=== PATIENT | female | born 1965 | race Caucasian/White ===

== ENCOUNTER 2020-12-01 13:45 | Inpatient (IN) | payer OTHER ==
[2020-12-01] MEDS ORDERED: IBUPROFEN 400 MG TABLET (FP) PO PRN (15:16)
[2020-12-01] MEDS ORDERED: guaiFENesin 200 MG/10 ML 10 ML UNIT-DOSE CUPS PO PRN (15:16)
[2020-12-01] MEDS ORDERED: P-EPHED 60MG/TRIPROLIDI 2.5MG TABLET PO PRN (15:16)
[2020-12-01] MEDS ORDERED: MAGNESIUM CITRATE 300 ML BOTTLE PO PRN (15:16)
[2020-12-01] MEDS ORDERED: LOPERAMIDE HCL 2 MG CAPSULE PO PRN (15:16)
[2020-12-01] MEDS ORDERED: MAG HYDROX/AL HYDROX/SIMETH 30 ML UNIT-DOSE CUP PO PRN (15:16)
[2020-12-01] MEDS ORDERED: MAGNESIUM HYDROX 2400MG/30ML ORAL SUSPENSION 30 ML CUP PO PRN (15:16)
[2020-12-01 15:20] VITALS: BMI 25.9
[2020-12-01] MEDS ORDERED: TUBERCULIN PPD 5 TU/0.1ML VIAL ID ONE (17:40)
[2020-12-01] MEDS: PRENATAL VITAMINS W/ FOLIC ACID TABLET (FP) PO SCH (17:53)
[2020-12-01] MEDS: hydrOXYzine PAMOATE 25 MG CAPSULE (FP) PO SCH ×2 (17:53→21:27)
[2020-12-01] MEDS: THIAMINE HCL 100 MG TABLET (FP) PO SCH (21:27)
[2020-12-01] MEDS ORDERED: MELATONIN 5 MG TABLETS PO SCH (22:00)
[2020-12-02] MEDS: hydrOXYzine PAMOATE 25 MG CAPSULE (FP) PO SCH ×5 (05:58→21:11)
[2020-12-02] MEDS ORDERED: NICOTINE 10 MG CARTRIDGE (INHALER) IH SCH (10:00)
[2020-12-02 10:13] LABS: HEMATOCRIT 38.8 % (32.4-45.2); HEMOGLOBIN 13.3 GM/dL (10.7-15.3); MCH 35.5 pg (25.7-33.7); MCHC 34.3 g/dl (32.0-36.0); MEAN CELL VOLUME 103.5 fl (80-96); MEAN PLT VOLUME 8.7 fl (7.5-11.1); PLATELET COUNT 274 10^3/uL (134-434); RBC 3.74 M/mm3 (3.60-5.2); RDW 13.6 % (11.6-15.6); WHITE BLOOD COUNT 7.3 K/mm3 (4.0-10.0)
[2020-12-02] MEDS: PRENATAL VITAMINS W/ FOLIC ACID TABLET (FP) PO SCH (10:15)
[2020-12-02 10:34] LABS: CALCIUM 9.4 mg/dL (8.5-10.1)
[2020-12-02 10:35] LABS: ALBUMIN 3.6 g/dl (3.4-5.0); BLOOD UREA NITROGEN 11.2 mg/dL (7-18)
[2020-12-02 10:38] LABS: CREATININE 0.6 mg/dL (0.55-1.3)
[2020-12-02 10:40] LABS: TOT PROT 7.3 g/dl (6.4-8.2)
[2020-12-02 10:43] LABS: BILIRUBIN,TOTAL 0.7 mg/dL (0.2-1)
[2020-12-02 13:23] LABS: SYPHILIS W/ RPR CONF NON-REACTIVE (NONREACTIVE)
[2020-12-02] MEDS: NICOTINE 10 MG CARTRIDGE (INHALER) IH PRN (17:20)
[2020-12-02] MEDS: THIAMINE HCL 100 MG TABLET (FP) PO SCH (21:11)
[2020-12-02] MEDS ORDERED: SUVOREXANT 10 MG TABLET PO PRN (22:00)
[2020-12-03] MEDS: hydrOXYzine PAMOATE 25 MG CAPSULE (FP) PO SCH ×5 (06:16→21:49)
[2020-12-03] MEDS: PRENATAL VITAMINS W/ FOLIC ACID TABLET (FP) PO SCH (10:30)
[2020-12-03] MEDS: THIAMINE HCL 100 MG TABLET (FP) PO SCH (21:49)
[2020-12-03] MEDS: SUVOREXANT 15 MG TABLET PO PRN (21:52)
[2020-12-04] MEDS: hydrOXYzine PAMOATE 25 MG CAPSULE (FP) PO SCH ×5 (06:17→21:25)
[2020-12-04] MEDS: PRENATAL VITAMINS W/ FOLIC ACID TABLET (FP) PO SCH (10:24)
[2020-12-04 13:00] LABS: EPI CELLS 13 /uL (0-25.1); HYALINE CASTS 0 /uL (0-3.1); URINE APPEARANCE CLEAR; URINE BACTERIA 9 /uL (0-1359); URINE BILIRUBIN NEGATIVE (NEGATIVE); URINE COLOR YELLOW; URINE GLUCOSE (UA) NEGATIVE (NEGATIVE); URINE KETONE NEGATIVE (NEGATIVE); URINE LEUK ESTERASE 2+ (NEGATIVE); URINE NITRITE NEGATIVE (NEGATIVE); URINE PROTEIN NEGATIVE (NEGATIVE); URINE RBC 1 /uL (0-23.9); URINE UROBILINOGEN 0.2 mg/dL (0.2-1.0); URINE WBC 20 /uL (0-25.8)
[2020-12-04] MEDS: THIAMINE HCL 100 MG TABLET (FP) PO SCH (21:25)
[2020-12-04] MEDS: SUVOREXANT 15 MG TABLET PO PRN (21:26)
[2020-12-05] MEDS: ACETAMINOPHEN 325 MG TABLET (FP) PO PRN (06:12)
[2020-12-05] MEDS: hydrOXYzine PAMOATE 25 MG CAPSULE (FP) PO SCH ×5 (06:12→21:33)
[2020-12-05] MEDS: PRENATAL VITAMINS W/ FOLIC ACID TABLET (FP) PO SCH (10:14)
[2020-12-05] MEDS: NICOTINE 10 MG CARTRIDGE (INHALER) IH PRN ×3 (10:15→21:33)
[2020-12-05] MEDS: SUVOREXANT 15 MG TABLET PO PRN (21:33)
[2020-12-05] MEDS: THIAMINE HCL 100 MG TABLET (FP) PO SCH (21:35)
[2020-12-06] MEDS: NICOTINE 10 MG CARTRIDGE (INHALER) IH PRN ×3 (06:12→22:26)
[2020-12-06] MEDS: hydrOXYzine PAMOATE 25 MG CAPSULE (FP) PO SCH ×5 (06:12→21:53)
[2020-12-06] MEDS: PRENATAL VITAMINS W/ FOLIC ACID TABLET (FP) PO SCH (10:05)
[2020-12-06] MEDS: THIAMINE HCL 100 MG TABLET (FP) PO SCH (21:53)
[2020-12-06] MEDS: SUVOREXANT 15 MG TABLET PO PRN (21:54)
[2020-12-07] MEDS: hydrOXYzine PAMOATE 25 MG CAPSULE (FP) PO SCH ×5 (06:13→21:51)
[2020-12-07] MEDS: ACETAMINOPHEN 325 MG TABLET (FP) PO PRN ×3 (06:31→21:54)
[2020-12-07] MEDS: PRENATAL VITAMINS W/ FOLIC ACID TABLET (FP) PO SCH (10:24)
[2020-12-07] MEDS: NICOTINE 10 MG CARTRIDGE (INHALER) IH PRN (10:25)
[2020-12-07] MEDS: THIAMINE HCL 100 MG TABLET (FP) PO SCH (21:52)
[2020-12-07] MEDS: SUVOREXANT 15 MG TABLET PO PRN (21:53)
[2020-12-08] MEDS: ACETAMINOPHEN 325 MG TABLET (FP) PO PRN (06:16)
[2020-12-08] MEDS: hydrOXYzine PAMOATE 25 MG CAPSULE (FP) PO SCH ×3 (06:16→13:40)
[2020-12-08] MEDS: PRENATAL VITAMINS W/ FOLIC ACID TABLET (FP) PO SCH (10:35)
[2020-12-08] MEDS: NICOTINE 10 MG CARTRIDGE (INHALER) IH PRN ×2 (10:36→21:37)
[2020-12-08] MEDS: BACLOFEN 10 MG TABLET (FP) PO SCH ×2 (13:40→21:34)
[2020-12-08] MEDS: THIAMINE HCL 100 MG TABLET (FP) PO SCH (21:34)
[2020-12-08] MEDS: diphenhydrAMINE HCL 50 MG CAPSULE PO PRN (21:36)
[2020-12-08] MEDS: SUVOREXANT 15 MG TABLET PO PRN (21:37)
[2020-12-09] MEDS: hydrOXYzine PAMOATE 25 MG CAPSULE (FP) PO PRN ×2 (06:18→10:45)
[2020-12-09] MEDS: BACLOFEN 10 MG TABLET (FP) PO SCH (06:18)
[2020-12-09] MEDS: NICOTINE 10 MG CARTRIDGE (INHALER) IH PRN (08:33)
[2020-12-09] MEDS: PRENATAL VITAMINS W/ FOLIC ACID TABLET (FP) PO SCH (10:42)
[2020-12-09] MEDS: LIDOCAINE 5% TOPICAL PATCH TP SCH (11:04)
[2020-12-09] MEDS: BACLOFEN 10 MG TABLET (FP) PO PRN ×2 (14:07→21:31)
[2020-12-09] MEDS: THIAMINE HCL 100 MG TABLET (FP) PO SCH (21:29)
[2020-12-09] MEDS: LIDOCAINE PATCH REMOVAL MC SCH (21:29)
[2020-12-09] MEDS: ACETAMINOPHEN 325 MG TABLET (FP) PO PRN (22:23)
[2020-12-10] MEDS: NICOTINE 10 MG CARTRIDGE (INHALER) IH PRN ×2 (06:20→16:34)
[2020-12-10] MEDS: BACLOFEN 10 MG TABLET (FP) PO PRN ×2 (06:20→21:43)
[2020-12-10] MEDS: ACETAMINOPHEN 325 MG TABLET (FP) PO PRN (07:38)
[2020-12-10] MEDS: PRENATAL VITAMINS W/ FOLIC ACID TABLET (FP) PO SCH (09:50)
[2020-12-10] MEDS: LIDOCAINE 5% TOPICAL PATCH TP SCH (09:50)
[2020-12-10] MEDS: hydrOXYzine PAMOATE 25 MG CAPSULE (FP) PO PRN ×2 (09:56→16:34)
[2020-12-10] MEDS ORDERED: diphenhydrAMINE HCL 25 MG CAPSULE (FP) PO ONE (19:26)
[2020-12-10] MEDS: THIAMINE HCL 100 MG TABLET (FP) PO SCH (21:43)
[2020-12-10] MEDS: diphenhydrAMINE HCL 50 MG CAPSULE PO PRN (21:44)
[2020-12-10] MEDS: LIDOCAINE PATCH REMOVAL MC SCH (21:44)
[2020-12-11] MEDS: BACLOFEN 10 MG TABLET (FP) PO PRN ×2 (06:17→21:20)
[2020-12-11] MEDS ORDERED: PT OWN MED DRAWER 7, Y5N ONE (08:56)
[2020-12-11] MEDS: LIDOCAINE 5% TOPICAL PATCH TP SCH (10:39)
[2020-12-11] MEDS: PRENATAL VITAMINS W/ FOLIC ACID TABLET (FP) PO SCH (10:39)
[2020-12-11] MEDS: NICOTINE 10 MG CARTRIDGE (INHALER) IH PRN (10:40)
[2020-12-11] MEDS: hydrOXYzine PAMOATE 25 MG CAPSULE (FP) PO PRN (10:40)
[2020-12-11] MEDS: diphenhydrAMINE HCL 50 MG CAPSULE PO PRN (21:20)
[2020-12-11] MEDS: THIAMINE HCL 100 MG TABLET (FP) PO SCH (21:20)
[2020-12-11] MEDS: LIDOCAINE PATCH REMOVAL MC SCH (21:21)
[2020-12-11] MEDS: ACETAMINOPHEN 325 MG TABLET (FP) PO PRN (21:22)
[2020-12-12] MEDS: NICOTINE 10 MG CARTRIDGE (INHALER) IH PRN (07:31)
[2020-12-12] MEDS: PRENATAL VITAMINS W/ FOLIC ACID TABLET (FP) PO SCH (10:12)
[2020-12-12] MEDS: LIDOCAINE 5% TOPICAL PATCH TP SCH (10:12)
[2020-12-12] MEDS: hydrOXYzine PAMOATE 25 MG CAPSULE (FP) PO PRN ×2 (10:13→21:45)
[2020-12-12] MEDS: BACLOFEN 10 MG TABLET (FP) PO PRN ×2 (15:09→21:43)
[2020-12-12] MEDS ORDERED: diphenhydrAMINE HCL 25 MG CAPSULE (FP) PO ONE (21:42)
[2020-12-12] MEDS: diphenhydrAMINE HCL 50 MG CAPSULE PO PRN (21:43)
[2020-12-12] MEDS: THIAMINE HCL 100 MG TABLET (FP) PO SCH (21:43)
[2020-12-12] MEDS: LIDOCAINE PATCH REMOVAL MC SCH (22:49)
[2020-12-13] MEDS ORDERED: PT OWN MED DRAWER 7, Y5N ONE (03:14)
[2020-12-13] MEDS: PRENATAL VITAMINS W/ FOLIC ACID TABLET (FP) PO SCH (10:06)
[2020-12-13] MEDS: NICOTINE 10 MG CARTRIDGE (INHALER) IH PRN (10:07)
[2020-12-13] MEDS: LIDOCAINE 5% TOPICAL PATCH TP SCH (10:07)
[2020-12-13] MEDS: LIDOCAINE PATCH REMOVAL MC SCH (21:49)
[2020-12-13] MEDS: diphenhydrAMINE HCL 50 MG CAPSULE PO PRN (21:49)
[2020-12-13] MEDS: THIAMINE HCL 100 MG TABLET (FP) PO SCH (21:49)
[2020-12-14] MEDS: NICOTINE 10 MG CARTRIDGE (INHALER) IH PRN (06:45)
[2020-12-14] MEDS: PRENATAL VITAMINS W/ FOLIC ACID TABLET (FP) PO SCH (10:17)
[2020-12-14] MEDS: LIDOCAINE 5% TOPICAL PATCH TP SCH (10:17)
[2020-12-14] MEDS: BACLOFEN 10 MG TABLET (FP) PO PRN (21:46)
[2020-12-14] MEDS: THIAMINE HCL 100 MG TABLET (FP) PO SCH (21:46)
[2020-12-14] MEDS: diphenhydrAMINE HCL 50 MG CAPSULE PO PRN (21:46)
[2020-12-14] MEDS: LIDOCAINE PATCH REMOVAL MC SCH (21:46)
[2020-12-15 06:43] VITALS: TEMP 97.1
[2020-12-15] MEDS: LIDOCAINE 5% TOPICAL PATCH TP SCH (10:20)
[2020-12-15] MEDS: PRENATAL VITAMINS W/ FOLIC ACID TABLET (FP) PO SCH (10:20)
[2020-12-15] MEDS: ACETAMINOPHEN 325 MG TABLET (FP) PO PRN (17:35)
[2020-12-15] MEDS: LIDOCAINE PATCH REMOVAL MC SCH (21:25)
[2020-12-15] MEDS: diphenhydrAMINE HCL 50 MG CAPSULE PO PRN (21:25)
[2020-12-15] MEDS ORDERED: diphenhydrAMINE HCL 25 MG CAPSULE (FP) PO ONE (21:25)
[2020-12-15] MEDS: THIAMINE HCL 100 MG TABLET (FP) PO SCH (22:55)
[2020-12-16] MEDS: ACETAMINOPHEN 325 MG TABLET (FP) PO PRN (06:18)
[2020-12-16 06:25] VITALS: BP 98/71; PULSE 100
[2020-12-16] MEDS: LIDOCAINE 5% TOPICAL PATCH TP SCH (09:33)
[2020-12-16] MEDS: PRENATAL VITAMINS W/ FOLIC ACID TABLET (FP) PO SCH (09:33)
== END 2020-12-16 09:50 | disposition home or self-care (01) | DRG 772 ==
LOC: YASAS 13:45 → Y5N 15:28
PROVIDERS: ADMIT Allergy & Immunology; ATTEND Allergy & Immunology
PROC: HZ42ZZZ Group Counseling for Substance Abuse Treatment, Cognitive-Behavioral (ICD-10-PCS; principal; 2020-12-01)
DX: F10.20 Alcohol dependence, uncomplicated (principal); F10.280 Alcohol dependence with alcohol-induced anxiety disorder; F10.282 Alcohol dependence with alcohol-induced sleep disorder; M54.50 Low back pain, unspecified; Z87.891 Personal history of nicotine dependence; Z86.69 Personal history of other diseases of the nervous system and sense organs; Z56.0 Unemployment, unspecified
CPT/HCPCS: 36415; 80053; 81003; 81025; 85027; 86780; 86803; C9803; J0475; U0003; U0005